=== PATIENT | female | born 1960 | race American Indian/Alaskan Native ===

== ENCOUNTER 2019-08-10 08:44 | Outpatient (CLI) | payer OTHER ==
--- NOTE | 2019-08-11 10:33 | Magnetic Resonance Report ---
BILATERAL BREAST MR WITHOUT AND WITH GADOLINIUM INDICATION: Newly diagnosed left breast cancer. COMPARISONS: No comparison images are available. TECHNIQUE: Axial 1.0 mm T1 without, axial high-resolution 2.0 mm T2 and axial 1.0 mm dynamic vibrant high-resolution postcontrast T1 fat saturation sequences on a 1.5 Camila magnet. The examination was p erformed with an 8-channel dedicated [place] breast coil. Post-processing with CAD and subtraction was performed on an [place] workstation. 14.0 cc of MultiHance was injected without incident for the c ontrast portion of the exam. Consent was obtained prior to the administration of the contrast. FINDINGS: RIGHT BREAST: Minimal background parenchymal enhancement. No mass or suspicious enhancement. No suspi cious lymph nodes. LEFT BREAST: Minimal background parenchymal enhancement. An irregular enhancing mass in the upper out er quadrant 10.5 cm from the nipple contains a biopsy clip and correlates with the known cancer. It d emonstrates heterogeneous enhancement with mixed kinetics, rapid initial enhancement, 110% peak enhan cement and 1% type III washout. 2 oval 6 mm masses or lymph nodes are identified directly posterior t o the known cancer and extend approximately 2 cm posterior to the cancer. Lesion 2 is segmental nonma ss enhancement within 1 cm medial to the known cancer. This linear clumped segmental nonmass enhancem ent extends approximately 2.5 cm anteriorly. The combination of nonmass enhancement, and additional m asses or lymph nodes spans approximately 5 cm anterior to posterior. It measures approximately 2.1 cm superior to inferior and approximately 1.5 cm transverse dimension. A single left axillary lymph nod e contains a hydromark biopsy clip. This lymph node is not optimally imaged and there are no other nath spicious lymph nodes. IMPRESSION: 1. Multifocal left breast cancer consisting of a mass or masses plus nonmass enhancement in a volume measuring approximately 5 x 2 x 1.5 cm. It would be helpful to have a comparison mammogram to determine if there is a mammographic finding nath ch as calcifications that might help to bracket the tumor. Targeted ultrasound may also be helpful. 2. Negative right breast. 3. No suspicious axillary or internal mammary lymph nodes. However, to 6 mm oval masses posterior to the known cancer may be abnormal intramammary lymph nodes. BI-RADS Category 6: Known cancer Signer Name: Abdiel Love MD Signed: 08/11/2019 10:29 AM Workstation Name: [id number]
== END 2019-08-10 08:45 | disposition home or self-care (01) ==
LOC: SPVIMAG 08:44
PROVIDERS: ATTEND Surgery
DX: C50.412 Malignant neoplasm of upper-outer quadrant of left female breast (principal)
CPT/HCPCS: A9577; C8908; 77049

== ENCOUNTER 2019-08-31 08:00 | Observation (INO) | payer OTHER ==
[2019-08-30 15:19] LABS: Eosinophils # (Auto) 0.1 K/mm3 (0.0-0.4); Eosinophils % (Auto) 3.3 % (0.0-4.3); Hematocrit 34.4 % (30.3-42.9); Hemoglobin 11.5 gm/dl (10.1-14.3); Lymphocytes # (Auto) 1.6 K/mm3 (1.2-5.4); Lymphocytes % (Auto) 42.2 % (13.4-35.0); Mean Corpuscular HGB Conc 33 % (30-34); Mean Corpuscular Volume 88 fl (79-97); Monocytes # (Auto) 0.4 K/mm3 (0.0-0.8); Monocytes % (Auto) 10.7 % (0.0-7.3); Platelet Count 187 K/mm3 (140-440); Red Blood Count 3.92 M/mm3 (3.65-5.03)
--- NOTE | 2019-08-30 15:23 | Anesthesia Consultation ---
Anesthesia Consult and Med Hx Date of service: 08/31/19 - Airway Anesthetic Teeth Evaluation: Good ROM Head & Neck: Adequate Mental/Hyoid Distance: Adequate Mallampati Class: Class II Intubation Access Assessment: Good - Pulmonary Exam CTA: Yes - Cardiac Exam Cardiac Exam: RRR - Pre-Operative Health Status ASA Pre-Surgery Classification: ASA2 Proposed Anesthetic Plan: General - Pre-Anesthesia Comment Pre-Anesthesia Comments: Pt had ORIF facial fractures and has some numbness on left lateral face.Airway appears normal. - Pulmonary Hx Smoking: Yes (4 YRS. QUIT 1981) - Central Nervous System Hx Psychiatric Problems: Yes - Hematic Hx Anemia: Yes (RESOLVED) Hx Sickle Cell Disease: (TRAIT) - Other Systems Hx Alcohol Use: Yes (SOCIALLY) Hx Substance Use: No Hx Cancer: Yes (breast)
[~2019-08-31 08:00] MED LIST: BACTERIOSTATIC SODIUM CHLORIDE 0.9% 30 ML VIAL INFILTRATI ONE; CELECOXIB 200 MG CAP PO NR; FAMOTIDINE 20 MG TAB PO NR; GABAPENTIN 300 MG CAP PO NR; HYDROmorphone 1 MG/1 ML INJ ONE; LACTATED RINGERS 1,000 ML IV SCH; MIDAZOLAM 2 MG/2 ML INJ IV NR; PROPOFOL 200 MG/20 ML VIAL IV ONE; ROCURONIUM 50 MG/5 ML INJ IV ONE; ceFAZolin/Water 2 GM/20 ML 2 GM/20 ML SYRINGE IV NR
[2019-08-31] MEDS ORDERED: ceFAZolin 1 GM VIAL ONE (08:18)
[2019-08-31] MEDS ORDERED: GENTAMICIN 40 MG/ML VIAL 2 ML ONE (08:19)
[2019-08-31] MEDS ORDERED: BACITRACIN 50,000 UNIT VIAL ONE (08:19)
[2019-08-31] MEDS ORDERED: SODIUM CHLORIDE P/F VIAL 10 ML 10 ML ONE ×3 (08:19→12:02)
[2019-08-31] MEDS ORDERED: METHYLENE BLUE 50 MG/10 ML AMP ONE (08:50)
[2019-08-31] MEDS ORDERED: LIDOCAINE MPF (2%) 20 MG/1 ML VIAL 5 ML ONE (09:45)
[2019-08-31] MEDS ORDERED: fentaNYL 100 MCG/2 ML INJ ONE ×2 (10:07→12:50)
[2019-08-31] MEDS ORDERED: BUPIVACAINE-EPINEPHRINE/PF 0.5%-1:200,000 (30 ML) VIAL INFILTRATI ONE (10:07)
[2019-08-31] MEDS ORDERED: ONDANSETRON 4 MG/2 ML INJ IV PRN (10:53)
[2019-08-31] MEDS ORDERED: METOCLOPRAMIDE 10 MG TAB PO PRN (10:53)
[2019-08-31] MEDS ORDERED: diphenhydrAMINE 25 MG CAP PO PRN (10:53)
[2019-08-31] MEDS ORDERED: ACETAMINOPHEN 325 MG TAB PO PRN (10:53)
--- NOTE | 2019-08-31 10:53 | Operative Report ---
Operative Report Operative Report: Operative Report: Date of Service: August 24, 2019 Preoperative diagnosis: Left breast cancer of the upper outer quadrant Postoperative diagnosis: Same Procedure: Left total mastectomy with sentinel lymph node biopsy and right total mastectomy Surgeon: Cindy Parker M.D. Channel Cementer Outsole Machine: Gardenia Mayer M.D. Anesthesia: Gen. Findings: Left breast clip present within left total mastectomy; x2 sentinel lymph nodes identified and negative for malignancy on frozen section of pathology Complications: None Drains: per Plastic surgery Estimated blood loss: 50-100 cc Disposition: Plastic surgery proceeded with bilateral tissue expanders Indications for operative procedure: This is a 59-year-old lady with newly diagnosed stage I left breast cancer of the upper outer quadrant, [id number] ER/NV negative and Her-2 positive. She has a personal history of right breast cancer post right partial mastectomy with SLNB and she completed adjuvant chemoradiation therapy 14 years ago for Stage II. Recent genetic testing with BRCA1 positive gene mutation and recommendations were to proceed with a bilateral total mastectomy and left SLN staging. She understands the role of possible adjuvant XRT pending final pathology and she understands the role of adjuvant chemotherapy given Her-2 positive receptor. She wished to proceed with the above procedure. Procedure in detail: Anesthesia placed bilateral pectoral blocks prior to going to the operating room. The patient was taken to the operating room and was placed supine. Gen. anesthesia was administered. The left nipple was injected with radioisotope. Bilateral chest and axillas were prepped and draped in the normal sterile operative fashion. Timeout was performed. Typical mastectomy incision markings were made. Attention was taken toward the right breast first. First began raising of the superior flap to the level of the clavicle superiorly and posteriorly to the pectoralis muscle. Followed by raising of the medial flap to the level of the sternum and posteriorly to the pectoralis muscle. Followed by raising of the lateral flap to the level of the latissimus dorsi muscle and taken down posteriorly. Followed by raising of the inferior flap to the level of the inframammary fold taken posterior to the pectoralis muscle. The mastectomy/breast was removed from the pectoralis muscle without incident. The specimen was appropriately marked and sent to pathology. Hemostasis was obtained. Prior lateral breast scar noted from previous surgery. The chest wall cavity was irrigated. Attention was taken towards the left breast. A gamma probe was inserted into the axilla to identify the sentinel lymph node location with uptake noted. A skin incision was made with a 10 blade knife and dissection taken down to the subcutaneous tissues. First began raising of the superior flap to the level of the clavicle superiorly and posteriorly to the pectoralis muscle. Followed by raising of the medial flap to the level of the sternum and posteriorly to the pectoralis muscle. Followed by raising of the lateral flap to the level of the latissimus dorsi muscle and taken down posteriorly. The gamma probe was inserted into the axilla, the axillary fascia was opened and 2 SLNS were identified that were dissected free and sent to pathology. All remaining counts were less than 10% of the highest count. All SLNs sent to pathology with findings negative for malignancy on frozen section. Then proceeded with raising of the inferior flap to the level of the inframammary fold taken posterior to the pectoralis muscle. The mastectomy/breast was removed from the pectoralis muscle without incident. Ultrasound was used to identify the area of known cancer with concerns of close margin and lateral margin with skin revised. The specimen was appropriately marked and sent to radiology with findings of breast clip present and sent to pathology. Hemostasis was obtained. The chest wall cavity was irrigated. She tolerated surgery very well and plastic surgery then proceeded with immediate bilateral tissue farmworker placement.
[2019-08-31] MEDS ORDERED: MORPHINE 2 MG/1 ML INJ IV PRN (10:55)
[2019-08-31] MEDS ORDERED: LACTATED RINGERS 1,000 ML IV SCH (11:00)
[2019-08-31] MEDS ORDERED: dexAMETHasone 20 MG/5 ML VIAL ONE (11:25)
[2019-08-31] MEDS ORDERED: ONDANSETRON 4 MG/2 ML INJ ONE (11:26)
[2019-08-31] MEDS ORDERED: ePHEDrine SULFATE 50 MG/1 ML INJ ONE (12:01)
[2019-08-31] MEDS ORDERED: SODIUM CHLORIDE 0.9% P/F 10 ML VIAL INFILTRATI ONE (12:58)
[2019-08-31] MEDS ORDERED: BACITRACIN 50,000 UNIT VIAL IR ONE (13:00)
[2019-08-31] MEDS ORDERED: ceFAZolin 1 GM VIAL IV ONE (13:00)
[2019-08-31] MEDS ORDERED: WATER FOR IRRIG STERILE 1,500 ML BOTTLE IR ONE (13:01)
[2019-08-31] MEDS ORDERED: SODIUM CHLORIDE 0.9% IRR 1,500 ML BOTTLE IR ONE (13:01)
[2019-08-31] MEDS ORDERED: LACTATED RINGERS 2,000 ML ONE (14:25)
--- NOTE | 2019-08-31 14:48 | XRay Report ---
LEFT BREAST SPECIMEN INDICATION / CLINICAL INFORMATION: LT BREAST CANCER COMPARISON: 08/10/2018. FINDINGS: A single radiographic image is submitted depicting left breast surgical specimen. There is a biopsy m arker within the periphery of the specimen, located 1.9 cm from the edge of the specimen. Please see operative note for specifics. Signer Name: Jose Francisco Delgado MD Signed: 08/31/2019 2:44 PM Workstation Name: [id number]
[2019-08-31] MEDS ORDERED: PHENYLEPHRINE/NS 1,000 MCG/10 ML SYRINGE (OR USE) IV ONE (16:37)
[2019-08-31] MEDS ORDERED: NITROGLYCERIN 2% OINT 1 GM TP ONE ×3 (17:04→23:00)
--- NOTE | 2019-08-31 18:24 | Operative Report ---
PREOPERATIVE DIAGNOSIS: Personal history of breast cancer. POSTOPERATIVE DIAGNOSIS: Personal history of breast cancer. PROCEDURES: 1. Bilateral immediate breast reconstruction with the use of [place] Artoura smooth 375 mL tissue tobacco drummer. 2. Placement of FlexHD bilateral. SURGEON: Alexandr Palacio MD MACHINE APPLICATOR CEMENTER: RENETTA Marie. ESTIMATED BLOOD LOSS: 25 mL. DRAINS: BALBIR x 4. SPECIMENS: None. COMPLICATIONS: None. INDICATIONS: The patient is a 59-year-old woman who presents with previous history of breast cancer and remote history of radiation, status post lumpectomy to the right breast, which is significantly smaller constricted compared to the left side. The left breast is somewhat larger and more ptotic prior to her mastectomy. Following discussion of the potential options as well as laterality of the surgery, she has opted for a bilateral mastectomy with immediate reconstruction with the use of tissue expanders and ADM. The nature of the surgery, the technical aspects, typical recovery period and potential risks involved were discussed fully including but not limited to postop bleeding, infection, pronounced scarring, hematoma or seroma formation, areas of paresthesias or numbness which may be permanent, delayed healing, dehiscence, capsular contracture, implant leak rupture, failure, need for removal, replacement or revision. We discussed the staged nature of the surgery and the necessity of a secondary procedure to remove the tissue expanders and replace them with implants as well as ancillary procedures such as nipple areolar reconstruction and subsequent tattooing. DESCRIPTION OF PROCEDURE: The patient was brought to the operating room. She was already anesthetized and Dr. Parker had completed the bilateral mastectomies and sentinel lymph node dissection. The pockets were inspected and meticulous hemostasis achieved with electrocautery. The flaps appeared to be of adequate thickness and viability. A subpectoral pocket was developed on each side by division of the inferior portion as well as the inferomedial portion of the pectoralis major muscle. In 11 x 20 cm sheet of MTF biologics FlexHD was placed into each pocket after being oriented and washed with triple antibiotic solution. This was a contour perforated piece and it was sewn to the chest wall at the inframammary fold with interrupted 0 PDS suture. The superior border of the FlexHD was sewn to the inferior border of the pectoralis major muscle with a combination of running 0 Vicryl and interrupted 0 Vicryl sutures. A deep 10 flat [place] BALBIR drain was placed on each side. The FlexHD was sewn down to the chest wall laterally the breast compartment from the lateral axilla. A superficial 7 mm round drain was placed as well. The drains exited through an inferolateral incision and were sewn in place with 2-0 silk. Below the FlexHD and subpectoral as in the pectoralis major muscle, a mentor Artoura 375 mL smooth tissue tobacco drummer was placed. It was emptied of all air and the pocket was irrigated with copious amounts of triple antibiotic solution on each side comprised of Ancef, gentamicin and bacitracin solution. The skin edges were trimmed on each flap to a nice healthy bleeding skin edge. Tension free closure was then facilitated in 3 layers with 2-0 Vicryl in the subcutaneous tissue plane, 3-0 Monocryl placed at the level of the deep dermis in an interrupted manner and a running subcuticular 4-0 Monocryl stitch. Histoacryl was placed at the skin level. A 120 mL of sterile saline was introduced into the left tissue tobacco drummer utilizing a closed sterile technique. However, on the right side, there was approximately a 2.5 cm x 2.5 cm circular patch superomedially, which was slightly ecchymotic and congested. It did have capillary refill. I elected to place 2% nitro paste on the surface and not to expand the site at this time. We will monitor this closely and act accordingly. Dressings and a surgical bra were applied. The patient tolerated the procedure well and was extubated and transferred to the recovery area in stable condition. JOB# [id number] /ANG
[2019-08-31] MEDS: DOCUSATE SODIUM 100 MG CAP PO SCH (22:35)
[2019-09-01] MEDS: oxyCODONE /ACETAMINOPHEN 5-325MG TAB PO PRN ×2 (05:02→10:55)
[2019-09-01] MEDS ORDERED: NITROGLYCERIN 2% OINT 1 GM TP ONE ×2 (07:10)
--- NOTE | 2019-09-01 08:41 | Progress Note ---
Assessment and Plan This is a POD#1 left total mastectomy with SLNB and right total mastectomy followed by immediate bilateral tissue fish straightener placement. No acute events overnight. 1. Pain in good control. 2. Bilateral chest incisions intact with skin well perfused; left upper flap with probable bruising from the stress of surgery with retraction. Will appply nitropaste to left upper flap to ensure good perfusion and Dr. Palacio will remove left saline from tissue fish straightener this afternoon to decrease the amount of stress. Right upper flap with skin well perfused. 3. BALBIR drain education. 4. OOB to counts include [facility] beds at the [facility]. 5. D/C planning for today. Subjective Date of service: 09/01/19 Principal diagnosis: Stage I left breast cancer Interval history: POD#1 left total mastectomy with SLNB and right total mastectomy followed by immediate bilateral tissue fish straightener placement Objective - Constitutional Vitals: Vital Signs - 12hr 08/31/19 09/01/19 09/01/19 23:39 02:18 04:54 Temperature 98.2 F 98.2 F Pulse Rate 82 78 81 Respiratory 20 20 Rate Blood Pressure 109/61 112/73 118/64 O2 Sat by Pulse 95 96 Oximetry 09/01/19 05:02 Temperature Pulse Rate Respiratory 18 Rate Blood Pressure O2 Sat by Pulse Oximetry General appearance: Present: no acute distress - EENT Eyes: PERRL ENT: hearing intact Ears: bilateral: normal - Neck Neck: supple, normal ROM - Respiratory Respiratory effort: normal - Breasts Breasts: other (bilateral chest incisions c/d/i; left upper flap with some bruising noted, skin well perfused; BALBIR drains to bulb suction) - Cardiovascular Rhythm: regular Extremities: no ischemia, pulses intact, pulses symmetrical, No edema, normal temperature, normal color, Full ROM - Gastrointestinal General gastrointestinal: Present: soft, non-tender, non-distended Rectal Exam: deferred - Genitourinary Female genitourinary: deferred - Integumentary Integumentary: clear, warm, dry - Musculoskeletal Musculoskeletal: strength equal bilaterally - Neurologic Neurologic: CNII-XII intact, moves all extremities - Psychiatric Psychiatric: appropriate mood/affect, intact judgment & insight, memory intact, cooperative - Labs CBC & Chem 7: 08/30/19 14:55 Medications & Allergies - Medications Allergies/Adverse Reactions: Allergies No Known Allergies Allergy (Verified 01/28/20 11:15) Home Medications: Home Medications Medication Instructions Recorded Confirmed Last Taken Type Galcanezumab-Gnlm [Emgality] 120 mg SQ PRN PRN 08/30/19 08/31/19 07/31/19 History LORazepam [Ativan] 0.5 mg PO QHS 08/30/19 08/31/19 07/31/19 History Vilazodone HCl [Viibryd] 20 mg PO QDAY 08/30/19 08/30/19 08/29/19 History Zolpidem [Ambien] 10 mg PO QHS 08/30/19 08/30/19 08/29/19 History Active Medications: Generic Name Dose Route Start Last Admin Trade Name Freq PRN Reason Stop Dose Admin Acetaminophen 650 mg 08/31/19 10:53 Tylenol PO Q6H PRN Pain MILD(1-3)/Fever >100.5/BURTON Diphenhydramine HCl 25 mg 08/31/19 10:53 Benadryl PO Q8H PRN Itching Docusate Sodium 100 mg 08/31/19 22:00 08/31/19 22:35 Colace PO 100 mg BID HARMONY Administration Lactated Ringer's 1,000 mls @ 125 mls/hr 08/31/19 11:00 09/01/19 02:17 Lactated Ringers IV 125 mls/hr DIRECT HARMONY Administration Metoclopramide HCl 10 mg 08/31/19 10:53 Reglan PO Q6H PRN Nausea And Vomiting Morphine Sulfate 2 mg 08/31/19 10:55 Morphine IV Q4H PRN Pain, Moderate (4-6) Ondansetron HCl 4 mg 08/31/19 10:53 Zofran IV Q8H PRN N/V unrelieved by Reglan Oxycodone/Acetaminophen 2 tab 08/31/19 10:53 09/01/19 05:02 Percocet 5/325 PO 2 tab Q6H PRN Administration Pain, Moderate (4-6) Sodium Chloride 10 ml 08/31/19 10:53 Sodium Chloride Flush Syringe 10 Ml IV PRN PRN LINE FLUSH
--- NOTE | 2019-09-01 10:49 | Anesthesia Day of Surgery ---
Anesthesia Day of Surgery - Day of Surgery Patient Examined: Yes Patient H&P Reviewed: Yes Patient is NPO: Yes
--- NOTE | 2019-09-01 10:51 | Post Anesthesia Evaluation ---
- Post Anesthesia Evaluation Patient Participated: Yes Airway Patent: Yes Stable Respiratory Function: Yes Nausea/Vomiting: No Temp > 96.8F: Yes Pain Manageable: Yes Adequeate Hydration: Yes Anesthesia Complications: No Block Receding Appropriately: Yes Patient on Ventilator: No
[2019-09-01] MEDS: DOCUSATE SODIUM 100 MG CAP PO SCH (10:56)
[2019-09-01 16:39] VITALS: BP 102/54
== END 2019-09-01 16:59 | disposition home or self-care (01) ==
LOC: OR 08:00 → OB 10:53
PROVIDERS: ADMIT Surgery; ATTEND Surgery
DX: C50.911 Malignant neoplasm of unspecified site of right female breast (principal); C50.912 Malignant neoplasm of unspecified site of left female breast
CPT/HCPCS: 19307; 36415; 64450; 76098; 78800; 85025; 88307; 88331; 88333; 88342; 96374; A9541; C1789; G0378; J0690; J1100; J1170; J1580; J2250; J2370; J2405; J2704; J3010; J7120; Q4128; Q9968

== ENCOUNTER 2019-09-27 07:38 | Day surgery (SDC) | payer OTHER ==
--- NOTE | 2019-09-26 09:12 | Short Stay Summary ---
Short Stay Documentation Date of service: 09/27/19 - History H&P: obtained from office - Allergies and Medications Current Medications: Allergies No Known Allergies Allergy (Verified 08/30/19 11:15) Home Medications Medication Instructions Recorded Confirmed Last Taken Type Galcanezumab-Gnlm [Emgality] 120 mg SQ PRN PRN 08/30/19 08/31/19 07/31/19 History LORazepam [Ativan] 0.5 mg PO QHS 08/30/19 08/31/19 07/31/19 History Vilazodone HCl [Viibryd] 20 mg PO QDAY 08/30/19 08/30/19 08/29/19 History Zolpidem [Ambien] 10 mg PO QHS 08/30/19 08/30/19 08/29/19 History - Physical exam General appearance: no acute distress Integumentary: no rash HEENT: Atraumatic Lungs: Normal air movement Neurological: Normal speech - Brief post op/procedure progress note Date of procedure: 09/27/19 (dictation:[id number]) Pre-op diagnosis: left breast cancer Post-op diagnosis: same Procedure: US guided port placement IVF 700cc EBL min Anesthesia: GETA Findings: normal anatomy Surgeon: GAMALIEL GRAHAM Estimated blood loss: minimal Pathology: none Condition: stable - Hospital course Hospital course: uneventful - Disposition Condition at discharge: Stable Disposition: DC-01 TO HOME OR SELFCARE Short Stay Discharge Plan Activity: advance as tolerated Diet: regular Wound: open to air, keep clean and dry Special Instructions: no heavy lifting Additional Instructions: Post Operative Instructions Activity: no heavy lifting for next 1 week. May shower tomorrow. Pat dry the wound or wounds. Keep incision sites clean and dry After surgery, start with a light diet. Consider starting with liquids. If you do well, you can advance to a regular diet as you feel comfortable. Apply an ice pack to the wound or wounds for 10-20 minutes at a time. Do this at least 4-5 times a day. You can do it more if he would like. Pain Medication Schedule for the first 2 days after surgery: Gabapentin 300mg twice a day Celebrex (celecoxib) 200mg twice a day Tylenol 500mg four times a day (every 6 hours) After the first 2 days, then take alternating doses of ibuprofen and Tylenol as needed for pain. Take 600 mg of ibuprofen every 6 hours as needed. Take 500 mg of Tylenol every 6 hours as needed. You should alternate these 2 medicines. Make sure you take the ibuprofen with food. It is very important that you use the prescription narcotic pain medicine (hydrocodone) only for very severe pain. Do not take the narcotic medicine before you try using all the medications listed above. We will call you in a couple of days to see how youre doing. If you have any questions or concerns, always feel free to call the clinic ([phone]) at any time. Follow up with: ANAYA MERRILL MD [Primary Care Provider] - 7 Days Prescriptions: Celecoxib [celeBREX] 200 mg PO BID #4 capsule Gabapentin 300 mg PO BID #4 capsule HYDROcodone/APAP 5-325 [[place] 5-325 mg TAB] 1 each PO Q6HR PRN #10 tablet PRN Reason: Pain , Severe (7-10)
[~2019-09-27 07:38] MED LIST changes: +ACETAMINOPHEN 500 MG TAB PO SCH; -BACTERIOSTATIC SODIUM CHLORIDE 0.9% 30 ML VIAL INFILTRATI ONE; -FAMOTIDINE 20 MG TAB PO NR; -HYDROmorphone 1 MG/1 ML INJ ONE; -LACTATED RINGERS 1,000 ML IV SCH; -MIDAZOLAM 2 MG/2 ML INJ IV NR; -PROPOFOL 200 MG/20 ML VIAL IV ONE; -ROCURONIUM 50 MG/5 ML INJ IV ONE; +SODIUM CHLORIDE 0.9% 1000 ML 1,000 ML IV SCH
[2019-09-27] MEDS ORDERED: BUPIVACAINE-EPINEPHRINE/PF 0.5%-1:200,000 (30 ML) VIAL INFILTRATI ONE ×2 (08:03→10:30)
[2019-09-27] MEDS ORDERED: LIDOCAINE (1%) 10 MG/1 ML VIAL 20 ML MDV ONE (08:03)
[2019-09-27] MEDS ORDERED: HEPARIN 10,000 UNITS/10 ML VIAL ONE (08:03)
[2019-09-27] MEDS ORDERED: SODIUM CHLORIDE 0.9% 250ML 250 ML ONE (08:03)
[2019-09-27] MEDS ORDERED: SODIUM CHLORIDE P/F VIAL 10 ML 10 ML ONE ×2 (08:03)
--- NOTE | 2019-09-27 09:05 | Anesthesia Consultation ---
Anesthesia Consult and Med Hx Date of service: 09/27/19 - Airway Anesthetic Teeth Evaluation: Good ROM Head & Neck: Adequate Mental/Hyoid Distance: Adequate Mallampati Class: Class II Intubation Access Assessment: Probably Good (previous easy intubation with MAC 3) - Pulmonary Exam CTA: Yes - Cardiac Exam Cardiac Exam: RRR - Pre-Operative Health Status ASA Pre-Surgery Classification: ASA2 Proposed Anesthetic Plan: General - Pulmonary Hx Smoking: Yes (STOPPED 1981) Hx Respiratory Symptoms: No Hx Sleep Apnea: No (NADEEN PRE SCREEN LOW RISK) - Cardiovascular System Hx Hypertension: No Hx Heart Attack/AMI: No Hx Percutaneous Transluminal Coronary Angioplasty (PTCA): No - Central Nervous System CVA: No Hx Psychiatric Problems: Yes (anxiety/depression) - Gastrointestinal Hx Gastroesophageal Reflux Disease: No - Endocrine Hx Renal Disease: No Hx Liver Disease: No Hx Insulin Dependent Diabetes: No Hx Non-Insulin Dependent Diabetes: No Hx Thyroid Disease: No - Hematic Hx Anemia: Yes - Other Systems Hx Alcohol Use: Yes (SOCIALLY) Hx Substance Use: No Hx Cancer: Yes (breast ca) Hx Obesity: No - Additional Comments Anesthesia Medical History Comments: No hx anesthetic complications.
--- NOTE | 2019-09-27 09:05 | Anesthesia Day of Surgery ---
Anesthesia Day of Surgery - Day of Surgery Patient Examined: Yes Patient H&P Reviewed: Yes Patient is NPO: Yes
[2019-09-27] MEDS ORDERED: fentaNYL 100 MCG/2 ML INJ IV PRN (09:14)
[2019-09-27] MEDS ORDERED: MIDAZOLAM 2 MG/2 ML INJ IV NR (10:00)
[2019-09-27] MEDS ORDERED: propofoL 200 MG/20 ML VIAL IV ONE (10:09)
[2019-09-27] MEDS ORDERED: fentaNYL 100 MCG/2 ML INJ ONE (10:09)
[2019-09-27] MEDS ORDERED: LIDOCAINE MPF (2%) 20 MG/1 ML VIAL 5 ML ONE (10:13)
[2019-09-27] MEDS ORDERED: LIDOCAINE (1%) 10 MG/1 ML VIAL 20 ML MDV INFILTRATI ONE (10:30)
[2019-09-27] MEDS ORDERED: ONDANSETRON 4 MG/2 ML INJ ONE (10:31)
[2019-09-27] MEDS ORDERED: HEPARIN 1,000 UNIT/1 ML VIAL IV ONE (10:46)
[2019-09-27] MEDS ORDERED: SODIUM CHLORIDE 0.9% 250 ML IVPB IV ONE (10:46)
[2019-09-27] MEDS ORDERED: HEPARIN 10,000 UNITS/10 ML VIAL IV ONE (10:47)
[2019-09-27] MEDS ORDERED: KETOROLAC 30 MG/1 ML INJ ONE (10:52)
[2019-09-27] MEDS ORDERED: MEPERIDINE 25 MG/1 ML INJ ONE (11:22)
[2019-09-27] MEDS ORDERED: MEPERIDINE 25 MG/1 ML INJ IV PRN ×2 (11:40)
--- NOTE | 2019-09-27 11:42 | Fluoroscopy Report ---
Single fluoroscopic image submitted Indication: Intraoperative localization Impression: A single image of the chest was submitted for documentation purposes with radiology invo lvement. A right-sided Port-A-Cath was placed with tip projecting below the [id number] in the mid chest region. Please refer to the operative note and any follow-up radiograph for further details. Fluoroscopic time: 0.6 minutes Number of fluoroscopic images: 1 Signer Name: Mahad Chakraborty MD Signed: 09/27/2019 11:38 AM Workstation Name: [id number]
--- NOTE | 2019-09-27 12:13 | XRay Report ---
CHEST 1 VIEW INDICATION: PORT PLACEMENT. COMPARISON: None FINDINGS: SUPPORT DEVICES: Central venous line has tip in the superior vena cava HEART / MEDIASTINUM: No significant abnormality. LUNGS / PLEURA: Bronchovascular markings are prominent throughout both lungs No significant pulmonary or pleural abnormality. No pneumothorax. ADDITIONAL FINDINGS: Surgical changes both breasts IMPRESSION: 1. No acute cardiopulmonary disease Signer Name: Danish Malik MD Signed: 09/27/2019 12:09 PM Workstation Name: [id number]
[2019-09-27 12:43] VITALS: BP 130/57
--- NOTE | 2019-09-27 20:47 | Post Anesthesia Evaluation ---
- Post Anesthesia Evaluation Patient Participated: Yes Airway Patent: Yes Stable Respiratory Function: Yes Nausea/Vomiting: No Temp > 96.8F: Yes Pain Manageable: Yes Adequeate Hydration: Yes Anesthesia Complications: No Block Receding Appropriately: Not Applicable Patient on Ventilator: No
--- NOTE | 2019-09-28 12:10 | Operative Report ---
PREOPERATIVE DIAGNOSIS: Left breast cancer. POSTOPERATIVE DIAGNOSIS: Left breast cancer. PROCEDURES: 1. Insertion of tunneled centrally inserted central venous access device with subcutaneous port. 2. Ultrasound guidance for vascular access. ATTENDING PHYSICIAN: Maikol Gutierrez MD ANESTHESIA: General. ESTIMATED BLOOD LOSS: Minimal. FLUIDS: 700 mL. FINDINGS: Normal vascular anatomy. IMPLANTS: Smart port. COMPLICATIONS: None. DISPOSITION: Stable, transferred to Recovery Room. INDICATIONS: This is a 59-year-old female who was recently diagnosed with left breast cancer and had breast cancer surgery about 3 weeks ago. The patient presents for port placement for chemotherapy. Procedure, risks, benefits were explained to the patient. Risks include but were not limited to infection, bleeding, pain, injury to surrounding structures, possible need for further procedures in the future. The patient understood and consented. OPERATIVE NOTE: The patient was brought to the operating room and placed on the table in supine position. After adequate general anesthesia was established, right internal jugular vein and subclavian veins were evaluated under ultrasound. The right internal jugular vein appeared to be a better target. It was completely open. No evidence of any stenoses, no clots were noted. It was close to the skin, easily compressible. Roll was placed underneath the shoulders to extend the neck. Sterile prep and drape was performed. Antibiotics had been given. SCDs were in place. Time-out was called. Under ultrasound guidance, I evaluated the right internal jugular vein again. I found a good point for access. Skin was anesthetized under ultrasound guidance. Also under ultrasound guidance, I anesthetized the planned path for the catheter down to the clavicle. There were some other dilated veins in the vicinity and wanted to make sure that we did not injure those when injecting the local. Thereafter, a small incision was made under ultrasound guidance. Introducer needle was inserted. I was able to access the vein on the first attempt. Tip of the needle could be seen in the center of the vein. We had easy aspiration of blood. Guidewire passed easily. Position was checked with fluoroscopy. Guidewire was secured and we turned our attention to the port pocket. Using the skin lines as a guide for making the incision, the area was marked out and anesthetized with local anesthetic. Sharp incision was made. Subcutaneous pocket was created. Additional local was injected. We checked to make sure the port fit easily and it did. Thereafter, we injected the planned catheter tract site. Using the tunneler, the catheter was passed up to the neck. We had no difficulty in passing it up. Dilator and sheath were passed over the wire. Guidewire was freely mobile during the entire time of insertion. Dilator and wire were removed. Catheter was inserted. Length was adjusted under fluoroscopy and the excess was excised. Port was attached. We had easy aspiration and flush with dilute heparinized saline. Final position was checked with fluoroscopy. The patient was changed from Trendelenburg to reverse Trendelenburg. Locking solution was administered. Additional local was injected. We made sure there was no bleeding. Deep tissue at the port site was closed with interrupted 3-0 Vicryl sutures. Skin was closed with 4-0 Monocryl subcuticular stitch. There is a slight skin separation at the vascular access site. Therefore, a single 4-0 Monocryl subcuticular stitch was then placed. Skin was cleaned and dried. Dermabond was placed. The patient tolerated the procedure well. There were no complications. Postoperative chest x-ray showed no evidence of any complications. I spoke with the family at the end of the case. JOB# [id number] NADER/ANG
== END 2019-09-27 13:15 | disposition home or self-care (01) ==
LOC: OR 07:38
PROVIDERS: ATTEND Surgery
DX: C50.912 Malignant neoplasm of unspecified site of left female breast (principal); G43.909 Migraine, unspecified, not intractable, without status migrainosus; M19.90 Unspecified osteoarthritis, unspecified site; F32.9 Major depressive disorder, single episode, unspecified; F41.9 Anxiety disorder, unspecified; Z80.8 Family history of malignant neoplasm of other organs or systems; Z79.899 Other long term (current) drug therapy; Z87.891 Personal history of nicotine dependence; Z90.11 Acquired absence of right breast and nipple; Z90.710 Acquired absence of both cervix and uterus; Z98.890 Other specified postprocedural states; Z72.89 Other problems related to lifestyle; Z80.42 Family history of malignant neoplasm of prostate; Z80.3 Family history of malignant neoplasm of breast
CPT/HCPCS: 36561; 76937; 77001; C1788; J0690; J1644; J1885; J2175; J2250; J2405; J2704; J3010; J7030; J7050; 71045